=== PATIENT | male | born 1985 | race African-American/Black ===

== ENCOUNTER 2019-08-27 07:38 | Emergency (ER) | payer OTHER ==
[~2019-08-27] VITALS: Ht 182.9 cm; Wt 114.0 kg
[2019-08-27] MEDS ORDERED: KETOROLAC 30MG/ML VIAL IM ONE (08:15)
[2019-08-27 08:56] VITALS: BP 166/88
[2019-08-27] MEDS ORDERED: HYDROCODONE/ACETAMINOPHEN 5/325MG TABLET PO ONE (09:00)
== END 2019-08-27 10:26 | disposition home or self-care (01) ==
LOC: ER 07:38
DX: M54.5 Low back pain (principal)
CPT/HCPCS: 96372; 99283; J1885